=== PATIENT | male | born 1975 | race Caucasian/White ===

== ENCOUNTER 2017-05-01 15:25 | Emergency (ER) | payer BC ==
--- NOTE | ~2017-05-01 | ER ---
PATIENT'S NAME: DEION NEVAREZ [facility] AGE: 41 Y [address] ROOM: [place] [address] LOCATION: [facility] ADMIT DATE: 05/01/2017 ER/Outpatient Report DISCHARGE DATE: 05/01/2017 FAMILY PHYSICIAN: Rajat Bowers MD ATTENDING PHYSICIAN: Christian Stahl TIME OF ARRIVAL: 1525. TIME OF EVALUATION: 1536. CHIEF COMPLAINT: Shortness of breath. HISTORY OF PRESENT ILLNESS: The patient is a 41-year-old male, who presents to the emergency department today with a chief complaint of shortness of breath. He reports it started 3 days prior to arrival. He reports that it has progressively worsened. He reports that he has slight shortness of breath with this. He also feels like his heart was fluttering. He reports that he felt like he had a flu bug in his stomach 2 days ago and that is when it all started. He reports his blood pressures have been elevated 148/103 at home. Denies any diarrhea. He feels like his heart is skipping a beat. He does report a history of similar episodes in the past which were short and never lasted this long. Denies any chest pain. No arm pain/shortness of breath. PAST MEDICAL HISTORY: Kidney stones, Meniere's. PAST SURGICAL HISTORY: Appendectomy, left elbow. SOCIAL HISTORY: The patient denies any tobacco, alcohol, or illicit drug use. ALLERGIES: MORPHINE. MEDICATIONS: Please see list. PRIMARY CARE DOCTOR: Dr. Bowers. PATIENT'S NAME: DEION NEVAREZ [facility] AGE: 41 Y [address] ROOM: [place] [address] LOCATION: [facility] ADMIT DATE: 05/01/2017 ER/Outpatient Report DISCHARGE DATE: 05/01/2017 FAMILY PHYSICIAN: Rajat Bowers MD ATTENDING PHYSICIAN: Christian Stahl REVIEW OF SYSTEMS: All systems are reviewed by myself and are negative with the exception of those discussed in HPI and past medical history. PHYSICAL EXAMINATION: VITAL SIGNS: Weight 117 kilos. Blood pressure 141/89, pulse 73, respiratory rate 22, temperature 98.8, oxygen saturation 95% on room air. GENERAL: The patient is a 41-year-old male, well developed, well nourished, in no acute distress at this time. HEENT: Head normocephalic, atraumatic. Pupils are equal, round, and reactive to light. Oropharynx is clear. NECK: Supple. There is no nuchal rigidity. CARDIOVASCULAR: Regular rate and rhythm. No murmurs, rubs, or gallops. LUNGS: Clear to auscultation bilaterally. No wheezes, rales, or rhonchi. ABDOMEN: Soft, nontender, and nondistended. No rebound, rigidity, or guarding. MUSCULOSKELETAL: The patient moves all 4 extremities. SKIN: Warm and dry. LABORATORY DATA AND X-RAYS: CBC is normal except for hemoglobin of 18.2. CMP is unremarkable except for a CO2 of 22, creatinine 1.33, calcium is normal, albumin is normal. ALT and AST are normal. Total bilirubin is 1.5. CMP is normal. Troponin is normal. CK is normal. D-dimer was 497. Repeat EKG at 1601 shows sinus rhythm with a rate of 79, normal axis, normal interval. No ST elevation, ST depression, or T-wave inversions. CT scan of the chest, PE study shows no PE. There are bilateral renal stones. Repeat cardiac enzymes are unremarkable. IMPRESSION: 1. Palpitations. 2. Dyspnea. 3. Elevated blood pressure. 4. Initial visit. EMERGENCY DEPARTMENT COURSE: The patient brought back to the examination room, seen and evaluated by myself. Laboratory analysis and imaging are obtained as described above. IV is established. The patient is given a liter of normal saline. I have discussed the results with the patient. I have contacted Dr. Wang who is on- call for the patient's primary care doctor. With the patient's elevated blood pressure, she will start metoprolol, she has called this in to [facility]. I have discussed return to care instructions including worsening symptoms or any other concerns to return to the emergency department as soon as possible. Also with discussion with Dr. Wang, we will work on getting the patient with an event monitor. He is to follow up with the [facility] in 1 to 2 days to get this accomplished. PATIENT'S NAME: DEION NEVAREZ [facility] AGE: 41 Y [address] ROOM: [place] [address] LOCATION: [facility] ADMIT DATE: 05/01/2017 ER/Outpatient Report DISCHARGE DATE: 05/01/2017 FAMILY PHYSICIAN: Rajat Bowers MD ATTENDING PHYSICIAN: Christian Stahl DISPOSITION: The patient is discharged home in good condition. DO GEMMA MCCABE/meche /[id number] d: 05/02/17 1153 t: 05/11/17 0654, OUTPATIENT REPORT
[2017-05-01 16:49] LABS: CPK 297 IU/L (35-332)
== END 2017-05-01 17:38 | disposition disaster alternative care site (69) ==
LOC: GMED 15:25
PROVIDERS: Emergency Medicine
DX: R00.2 Palpitations (principal); R06.00 Dyspnea, unspecified; Z90.49 Acquired absence of other specified parts of digestive tract; Z87.442 Personal history of urinary calculi; Z88.5 Allergy status to narcotic agent
CPT/HCPCS: J7030; Q9967